=== PATIENT | male | born 1930 ===

== ENCOUNTER 2017-07-19 07:40 | Inpatient (IN) | payer OTHER ==
[~2017-07-19] VITALS: Ht 162.6 cm; Wt 68.0 kg
[2017-07-19] MEDS ORDERED: TIROSINT100 MCG (08:03)
[2017-07-21] MEDS ORDERED: ULTRACET PO (10:28)
[2017-07-21] MEDS ORDERED: POLY119PG PO (10:28)
== END 2017-07-21 12:33 | disposition home or self-care (01) | DRG 352 ==
LOC: ER 07:40 → SEC-K 21:42 → SURG 21:42 → O/R 07-20 08:01 → SURG 07-20 11:52
PROVIDERS: Surgery
PROC: BW21Y0Z Computerized Tomography (CT Scan) of Abdomen and Pelvis using Other Contrast, Unenhanced and Enhanced (ICD-10-PCS; 2017-07-19)
PROC: 0YU54JZ Supplement Right Inguinal Region with Synthetic Substitute, Percutaneous Endoscopic Approach (ICD-10-PCS; principal; 2017-07-20 09:45)
DX: K40.31 Unilateral inguinal hernia, with obstruction, without gangrene, recurrent (principal); E86.0 Dehydration; K59.09 Other constipation